=== PATIENT | female | born 1945 | race Caucasian/White ===

== ENCOUNTER 2020-09-11 09:40 | Outpatient (CLI) | payer MEDICARE, SELFPAY ==
--- NOTE | ~2020-09-11 | MM_ITS ---
EXAMINATION: MM screening [facility] HISTORY: Screening TECHNIQUE: Craniocaudal and mediolateral oblique 3-D tomosynthesis images were obtained and synthetic 2-D images were generated. CAD analysis was submitted and interpreted. COMPARISON: Comparison to multiple prior studies sequentially, with oldest reviewed study dated 11/16. BREAST PARENCHYMAL COMPOSITION: There are scattered areas of fibroglandular density. FINDINGS: There is no evidence of suspicious mass, calcification, or architectural distortion to sugg est malignancy in either breast. There has been no suspicious interval change. IMPRESSION: 1. No mammographic evidence of malignancy. 2. Recommend routine screening mammography in one year. BI-RADS Category 1: Negative Reviewed, dictated and finalized at location A.
== END 2020-09-11 09:41 | disposition home or self-care (01) ==
LOC: ANHIMG 09:44
PROVIDERS: PCP Family Medicine; Referring Provider Obstetrics & Gynecology; Visit Provider Family Medicine
DX: Z12.31 Encounter for screening mammogram for malignant neoplasm of breast (principal)
CPT/HCPCS: 77063; 77067

== ENCOUNTER 2022-04-23 08:08 | Outpatient (CLI) | payer MEDICARE, SELFPAY ==
[2022-04-23 20:37] LABS: Kit Draw Collected
== END 2022-04-23 08:09 | disposition home or self-care (01) ==
LOC: ANHGOSHLAB 08:11
PROVIDERS: PCP Family Medicine; Visit Provider Family Medicine
DX: E11.9 Type 2 diabetes mellitus without complications (principal)
CPT/HCPCS: 36415

== ENCOUNTER 2022-08-13 08:10 | Outpatient (CLI) | payer MEDICARE, SELFPAY ==
[2022-08-13 19:01] LABS: Alanine Aminotransferase 24 U/L (6-35); Albumin Level 4.6 g/dL (3.5-5.1); Alkaline Phosphatase 99 U/L (38-126); Anion Gap 10 mmol/L (8-16); Aspartate Amino Transferase 26 U/L (14-36); Bilirubin,Total 0.5 mg/dL (0.2-1.3); Blood Urea Nitrogen 27 mg/dL (7-17); Calcium 9.6 mg/dL (8.4-10.2); Carbon Dioxide 22 mmol/L (22-30); Chloride 104 mmol/L (98-107); Cholesterol 143 mg/dL (0-200); Estimated Glomerular Filt Rate 54; Glucose 137 mg/dL (65-110); HDL Direct 56 mg/dL; Potassium 4.8 mmol/L (3.4-5.0); Sodium 136 mmol/L (137-145); Triglycerides 105 mg/dL (<150)
[2022-08-13 19:15] LABS: Creatinine Urine 57.5 mg/dL
[2022-08-13 19:18] LABS: MALB Creatinine Ratio 104.2 mg/g (0-30); Microalbumin Urine Random 59.9 mg/L (0-16.7)
[2022-08-13 20:51] LABS: Hemoglobin A1C 8.4 % (<5.7)
[2022-08-13 21:25] LABS: LDL Cholesterol Direct 61 mg/dL
== END 2022-08-13 08:11 | disposition home or self-care (01) ==
LOC: ANHGOSHLAB 08:11
PROVIDERS: PCP Family Medicine; Visit Provider Family Medicine
DX: E11.9 Type 2 diabetes mellitus without complications (principal)
CPT/HCPCS: 36415; 80053; 80061; 82043; 83036

== ENCOUNTER 2022-08-22 10:46 | Outpatient (CLI) | payer MEDICARE, SELFPAY ==
--- NOTE | ~2022-08-22 | MM_ITS ---
EXAMINATION: MM screening [facility] HISTORY: Screening mammogram TECHNIQUE: Craniocaudal and mediolateral oblique 3-D tomosynthesis images were obtained and synthetic 2-D images were generated. CAD analysis was submitted and interpreted. COMPARISON: 09/11/2020, 01/24/2018 BREAST PARENCHYMAL COMPOSITION:The breasts are heterogeneously dense, which may obscure small masses. FINDINGS: Since of bilateral benign calcifications are present. No suspicious mass, calcification, or architectural distortion are identified in either breast to suggest malignancy. There has been no solorio spicious interval change. IMPRESSION: No mammographic evidence of malignancy. Recommend routine screening mammography in one year. BI-RADS Category 2: Benign finding(s). Reviewed, dictated and finalized at location .
== END 2022-08-22 10:47 | disposition home or self-care (01) ==
PROVIDERS: PCP Family Medicine; Visit Provider Family Medicine
DX: Z12.31 Encounter for screening mammogram for malignant neoplasm of breast (principal); M81.0 Age-related osteoporosis without current pathological fracture
CPT/HCPCS: 77063; 77067

== ENCOUNTER 2022-08-24 11:27 | Outpatient (CLI) | payer MEDICARE, SELFPAY ==
--- NOTE | ~2022-08-24 | DEXA_ITS ---
Bone Density Report Name: MARINO WILKINS Age: 77 Sex: Female Ethnicity: White Date of : 1945 Indication: postmenopausal; screening for osteoporosis; height loss; Referring Provider: SHAHEEN WELLS Study: Bone densitometry was performed. Exam Date: August 24, 2022 Accession number: [id number] Bone Density: Region BMD T-score Z-score Classification AP Spine(L1-L4) 0.971 -0.7 1.8 Normal Femoral Neck (Left) 0.627 -2.0 0.2 Osteopenia Total Hip (Left) 0.877 -0.5 1.3 Normal Femoral Neck (Right) 0.682 -1.5 0.6 Osteopenia Total Hip (Right) 0.830 -0.9 1.0 Normal Total Hip Mean 0.853 -0.7 1.2 Normal World Health Organization criteria for BMD impression classify patients as: Normal (T-score at or above -1.0), Osteopenia (T-score between -1.0 and -2.5), or Osteoporosis (T-score at or below -2.5). 10-year Fracture Risk(1): Major Osteoporotic Fracture 14% Hip Fracture 3.5% Reported Risk Factors: [place] (), Neck BMD=0.627, BMI=24.0 (1) FRAX(R) Version 3.08. Fracture probability calculated for an untreated patient. Fracture probability may be lower if the patient has received treatment. Previous Exams: Region Exam Age BMD T-score BMD Change BMD Change Date g/cm2 vs Baseline vs Previous AP Spine (L1-L4) 08/24/2022 77 0.971 -0.7 0.007 (0.7%) 0.007 (0.7%) 01/24/2018 73 0.964 -0.8 Total Hip(Left) 08/24/2022 77 0.877 -0.5 -0.057 (-6.1%) -0.057 (-6.1%) 01/24/2018 73 0.934 -0.1 Total Hip(Right) 08/24/2022 77 0.830 -0.9 -0.069 (-7.6%) -0.069 (-7.6%) 01/24/2018 73 0.899 -0.4 *Denotes significance at 95% confidence level, LSC for AP Spine = 0.022 g/cm2, LSC for Total Hip = 0.027 g/cm2 Clinical Information Provided by Patient: Has used the following medications: Vitamin D, Calcium Patient maximum height was 65 Menopause Age: 51 Onset of menses at age 15 Number of children 4 Impression: The patient has low bone mass, based on the Left Femoral Neck T-score. The patient has an estimated ten-year risk of hip fracture of 3.5% and an estimated ten-year risk of major fracture of 14%, based on the WHO FRAX algorithm. The BMD for the Total Hip(Left) decreased, changing by -6.1% since the last DXA exam. The BMD for the Total Hip(Right) decreased, changing by -7.6% since the last DXA exam. Discussion: BONE DENSITY IS LOW AT ONE OR MORE SKELETAL SITES. THE PATIENT'S BMD AND CLINICAL RISK FACTORS CONT
== END 2022-08-24 11:28 | disposition home or self-care (01) ==
LOC: ANHIMG 11:30
PROVIDERS: PCP Family Medicine; Visit Provider Family Medicine
DX: M80.079 Age-related osteoporosis with current pathological fracture, unspecified ankle and foot (principal); M85.852 Other specified disorders of bone density and structure, left thigh; M85.851 Other specified disorders of bone density and structure, right thigh
CPT/HCPCS: 77080

== ENCOUNTER 2022-12-09 08:18 | Outpatient (CLI) | payer MEDICARE, SELFPAY ==
[2022-12-09 19:11] LABS: Basophils Absolute Auto 0.1 K/mm3 (0.0-0.1); Basophils Percent Auto 1.3 % (0.2-1.2); Eosinophils Absolute Auto 0.3 K/mm3 (0-0.3); Eosinophils Percent Auto 5.9 % (0-4.4); Hematocrit 34.3 % (37.0-47.0); Hemoglobin 10.5 g/dL (12.0-15.0); Immature Granulocyte Absolute 0.01 K/mm3 (0.00-0.031); Immature Granulocyte Percent A 0.2 % (0-0.5); Lymphocytes Absolute Auto 1.63 K/mm3 (0.9-3.2); Lymphocytes Percent Auto 30.9 % (18.3-44.2); Mean Corpuscular HGB Conc 30.6 g/dl (32-36); Mean Corpuscular Hemoglobin 25.1 pg (26-34); Mean Corpuscular Volume 82.1 fl (80-100); Mean Platelet Volume 10.2 fl (7.4-10.4); Monocytes Absolute Auto 0.5 K/mm3 (0.1-0.6); Monocytes Percent Auto 9.5 % (2.6-8.5); Neutrophils Absolute Auto 2.8 K/mm3 (1.3-6.7); Neutrophils Percent Auto 52.2 % (45.5-73.1); Platelet Count Result 336 k/mm3 (150-375); Red Blood Count 4.18 M/mm3 (4.2-5.4); Red Cell Distribution Width 15.4 % (11.5-14.5); White Blood Count 5.3 K/mm3 (4.5-10.0)
[2022-12-09 19:14] LABS: Alanine Aminotransferase 26 U/L (6-35); Albumin Level 4.6 g/dL (3.5-5.1); Alkaline Phosphatase 89 U/L (38-126); Anion Gap 10 mmol/L (8-16); Aspartate Amino Transferase 35 U/L (14-36); Bilirubin,Total 0.4 mg/dL (0.2-1.3); Blood Urea Nitrogen 21 mg/dL (7-17); Calcium 9.6 mg/dL (8.4-10.2); Carbon Dioxide 24 mmol/L (22-30); Chloride 101 mmol/L (98-107); Cholesterol 152 mg/dL (0-200); Estimated Glomerular Filt Rate 48; Glucose 118 mg/dL (65-110); HDL Direct 53 mg/dL; Potassium 4.8 mmol/L (3.4-5.0); Sodium 135 mmol/L (137-145); Triglycerides 117 mg/dL (<150)
[2022-12-09 19:25] LABS: LDL Cholesterol Direct 65 mg/dL
[2022-12-09 19:39] LABS: Hemoglobin A1C 8.1 % (<5.7)
[2022-12-09 19:42] LABS: Thyroid Stimulating Hormone 0.766 uIU/mL (0.465-4.680)
== END 2022-12-09 08:19 | disposition home or self-care (01) ==
PROVIDERS: PCP Family Medicine; Visit Provider Physician Assistant
DX: G45.9 Transient cerebral ischemic attack, unspecified (principal); I10 Essential (primary) hypertension; E11.8 Type 2 diabetes mellitus with unspecified complications
CPT/HCPCS: 36415; 80053; 80061; 83036; 84443; 85025

== ENCOUNTER 2022-12-17 14:41 | Outpatient (CLI) | payer MEDICARE, SELFPAY ==
[2022-12-17 17:20] LABS: Basophils Absolute Auto 0.1 K/mm3 (0.0-0.1); Basophils Percent Auto 1.1 % (0.2-1.2); Eosinophils Absolute Auto 0.3 K/mm3 (0-0.3); Eosinophils Percent Auto 3.5 % (0-4.4); Hematocrit 33.2 % (37.0-47.0); Hemoglobin 10.2 g/dL (12.0-15.0); Immature Granulocyte Absolute 0.03 K/mm3 (0.00-0.031); Immature Granulocyte Percent A 0.4 % (0-0.5); Lymphocytes Absolute Auto 1.74 K/mm3 (0.9-3.2); Lymphocytes Percent Auto 24.3 % (18.3-44.2); Mean Corpuscular HGB Conc 30.7 g/dl (32-36); Mean Corpuscular Hemoglobin 25.1 pg (26-34); Mean Corpuscular Volume 81.6 fl (80-100); Mean Platelet Volume 10.6 fl (7.4-10.4); Monocytes Absolute Auto 0.4 K/mm3 (0.1-0.6); Monocytes Percent Auto 6.1 % (2.6-8.5); Neutrophils Absolute Auto 4.6 K/mm3 (1.3-6.7); Neutrophils Percent Auto 64.6 % (45.5-73.1); Platelet Count Result 337 k/mm3 (150-375); Red Blood Count 4.07 M/mm3 (4.2-5.4); Red Cell Distribution Width 15.6 % (11.5-14.5); Reticulocyte Hemoglobin Conten 27.2 pg (28.2-35.7); Reticulocyte Percent 1.18 % (0.7-4.3); Reticulocytes Absolute 0.05 M/mm3 (0.02-0.1); White Blood Count 7.2 K/mm3 (4.5-10.0)
[2022-12-17 18:27] LABS: Iron 39 ug/dL (37-170)
[2022-12-17 21:26] LABS: Ferritin 5.59 ng/mL (11.1-264)
== END 2022-12-17 14:42 | disposition home or self-care (01) ==
LOC: ANHGOSHLAB 14:43
PROVIDERS: PCP Family Medicine; Visit Provider Family Medicine
DX: D64.9 Anemia, unspecified (principal)
CPT/HCPCS: 36415; 82728; 83540; 85025; 85046

== ENCOUNTER 2023-05-05 08:19 | Outpatient (CLI) | payer MEDICARE, SELFPAY ==
[2023-05-05 19:08] LABS: Basophils Absolute Auto 0.1 K/mm3 (0.0-0.1); Basophils Percent Auto 1.3 % (0.2-1.2); Eosinophils Absolute Auto 0.3 K/mm3 (0-0.3); Eosinophils Percent Auto 4.4 % (0-4.4); Hematocrit 41.1 % (37.0-47.0); Hemoglobin 13.1 g/dL (12.0-15.0); Immature Granulocyte Absolute 0.01 K/mm3 (0.00-0.031); Immature Granulocyte Percent A 0.2 % (0-0.5); Immature Reticulocyte Fraction 13.4 % (3.0-15.9); Lymphocytes Absolute Auto 1.59 K/mm3 (0.9-3.2); Lymphocytes Percent Auto 24.9 % (18.3-44.2); Mean Corpuscular HGB Conc 31.9 g/dl (32-36); Mean Corpuscular Hemoglobin 28.7 pg (26-34); Mean Corpuscular Volume 90.1 fl (80-100); Mean Platelet Volume 10.8 fl (7.4-10.4); Monocytes Absolute Auto 0.4 K/mm3 (0.1-0.6); Monocytes Percent Auto 5.9 % (2.6-8.5); Neutrophils Absolute Auto 4.1 K/mm3 (1.3-6.7); Neutrophils Percent Auto 63.3 % (45.5-73.1); Platelet Count Result 253 k/mm3 (150-375); Red Blood Count 4.56 M/mm3 (4.2-5.4); Red Cell Distribution Width 14.1 % (11.5-14.5); Reticulocyte Hemoglobin Conten 33.2 pg (28.2-35.7); Reticulocyte Percent 1.69 % (0.7-4.3); Reticulocytes Absolute 0.08 M/mm3 (0.02-0.1); White Blood Count 6.4 K/mm3 (4.5-10.0)
[2023-05-05 19:13] LABS: Alanine Aminotransferase 27 U/L (6-35); Albumin Level 4.4 g/dL (3.5-5.1); Alkaline Phosphatase 104 U/L (38-126); Anion Gap 11 mmol/L (8-16); Aspartate Amino Transferase 31 U/L (14-36); Bilirubin,Total 0.6 mg/dL (0.2-1.3); Blood Urea Nitrogen 18 mg/dL (7-17); Carbon Dioxide 23 mmol/L (22-30); Chloride 103 mmol/L (98-107); Cholesterol 178 mg/dL (0-200); Estimated Glomerular Filt Rate > 60; Glucose 173 mg/dL (65-110); HDL Direct 62 mg/dL; Potassium 4.8 mmol/L (3.4-5.0); Sodium 137 mmol/L (137-145); Triglycerides 152 mg/dL (<150)
[2023-05-05 19:23] LABS: LDL Cholesterol Direct 81 mg/dL
[2023-05-05 19:35] LABS: Creatinine Urine 96.9 mg/dL
[2023-05-05 19:54] LABS: MALB Creatinine Ratio 312.3 mg/g (0-30); Microalbumin Urine Random 302.6 mg/L (0-16.7)
[2023-05-05 20:59] LABS: Hemoglobin A1C 9.2 % (<5.7)
== END 2023-05-05 08:20 | disposition home or self-care (01) ==
LOC: ANHGOSHLAB 08:21
PROVIDERS: PCP Family Medicine; Visit Provider Family Medicine
DX: D64.9 Anemia, unspecified (principal); E11.9 Type 2 diabetes mellitus without complications
CPT/HCPCS: 36415; 80053; 80061; 82043; 82728; 83036; 85025; 85046

== ENCOUNTER 2023-09-07 07:59 | Outpatient (CLI) | payer MEDICARE, SELFPAY ==
[2023-09-07 19:45] LABS: Alanine Aminotransferase 26 U/L (6-35); Albumin Level 4.5 g/dL (3.5-5.1); Alkaline Phosphatase 85 U/L (38-126); Anion Gap 8 mmol/L (4-12); Aspartate Amino Transferase 31 U/L (14-36); Bilirubin,Total 0.6 mg/dL (0.2-1.3); Blood Urea Nitrogen 27 mg/dL (7-17); Calcium 9.7 mg/dL (8.4-10.2); Carbon Dioxide 22 mmol/L (22-30); Chloride 106 mmol/L (98-107); Estimated Glomerular Filt Rate > 60; Glucose 123 mg/dL (65-110); Potassium 4.8 mmol/L (3.4-5.0); Sodium 136 mmol/L (137-145)
[2023-09-07 19:58] LABS: Hemoglobin A1C 7.4 % (<5.7)
== END 2023-09-07 08:00 | disposition home or self-care (01) ==
LOC: ANHGOSHLAB 08:00
PROVIDERS: PCP Family Medicine; Visit Provider Family Medicine
DX: E11.9 Type 2 diabetes mellitus without complications (principal)
CPT/HCPCS: 36415; 80053; 83036

== ENCOUNTER 2024-01-07 07:58 | Outpatient (CLI) | payer MEDICARE, SELFPAY ==
[2024-01-07 14:39] LABS: Alanine Aminotransferase 25 U/L (6-35); Albumin Level 4.6 g/dL (3.5-5.1); Alkaline Phosphatase 89 U/L (38-126); Anion Gap 11 mmol/L (4-12); Aspartate Amino Transferase 43 U/L (14-36); Bilirubin,Total 0.6 mg/dL (0.2-1.3); Blood Urea Nitrogen 26 mg/dL (7-17); Calcium 9.7 mg/dL (8.4-10.2); Carbon Dioxide 23 mmol/L (22-30); Chloride 103 mmol/L (98-107); Estimated Glomerular Filt Rate 54; Glucose 86 mg/dL (65-110); Potassium 4.6 mmol/L (3.4-5.0); Sodium 137 mmol/L (137-145)
[2024-01-07 16:23] LABS: Hemoglobin A1C 7.5 % (<5.7)
== END 2024-01-07 07:59 | disposition home or self-care (01) ==
LOC: ANHGOSHLAB 08:00
PROVIDERS: PCP Family Medicine; Visit Provider Family Medicine
DX: E11.9 Type 2 diabetes mellitus without complications (principal)
CPT/HCPCS: 36415; 80053; 83036

== ENCOUNTER 2024-05-23 08:29 | Outpatient (CLI) | payer MEDICARE, SELFPAY ==
[2024-05-23 13:48] LABS: Alanine Aminotransferase 23 U/L (6-35); Albumin Level 4.4 g/dL (3.5-5.1); Alkaline Phosphatase 93 U/L (38-126); Anion Gap 11 mmol/L (4-12); Aspartate Amino Transferase 41 U/L (14-36); Bilirubin,Total 0.7 mg/dL (0.2-1.3); Blood Urea Nitrogen 23 mg/dL (7-17); Calcium 9.3 mg/dL (8.4-10.2); Carbon Dioxide 25 mmol/L (22-30); Chloride 102 mmol/L (98-107); Estimated Glomerular Filt Rate > 60; Glucose 131 mg/dL (65-110); Potassium 4.6 mmol/L (3.4-5.0); Sodium 138 mmol/L (137-145)
[2024-05-23 21:34] LABS: Hemoglobin A1C 8.3 % (<5.7)
== END 2024-05-23 08:30 | disposition home or self-care (01) ==
LOC: ANHGOSHLAB 08:30
PROVIDERS: PCP Family Medicine; Visit Provider Family Medicine
DX: E11.9 Type 2 diabetes mellitus without complications (principal)
CPT/HCPCS: 36415; 80053; 83036

== ENCOUNTER 2024-09-26 08:19 | Outpatient (CLI) | payer MEDICARE, SELFPAY ==
--- OUTSIDE RECORDS SUMMARY | 2024-09-26 08:28 | XMS_ITS | Clinical Summary ---
Author Organization [email or web address] Address [address] [place] [address] Care Team Providers Care Disabilities Caregiver Name Role Phone Norris Ozuna MD Primary Care Provider [phone] Source Comments [email or web address],non-owned Affiliates and Associated Physician Practices is amultiple site organization consisting of ambulatory clinics and hospital sitesin [place], [place], [place] and [place]. This disclosure is being madepursuant to the Care Everywhere program and may not contain all information available regarding this patient. Last updated 18.[email or web address] Allergies No known active allergies Medications * Be aware that medications may not be up to date on this document. Alwaysverify current medications with the patient. atorvastatin (LIPITOR) 40 MG tablet Take 1 (one) tablet by mouth once daily 1 Active lisinopril (PRINIVIL; ZESTRIL) 20 MG tablet Take 1 (one) tablet by mouth 2 times daily 1 Active SITagliptin-me tFORMIN (JANUMET) 50-1000 MG tablet Take 1 (one) tablet by mouth 2 times daily Active glimepiride (AMARYL) 2 MG tablet Take 1 (one) tablet by mouth 2 times daily 1 Active OZEMPIC, 1 MG/DOSE, 4 MG/3ML SOPN Inject 1 (one) mg subcutaneously every 7 days On Wednesdays 1 Active omeprazole (PRILOSEC) 20 MG capsule Take 1 (one) capsule by mouth daily before breakfast Active amLODIPine (NORVASC) 10 MG tablet Take 1 (one) tablet by mouth once daily 30 tablet 3 2 Active aspirin (Aspirin) 81 MG chew tablet Take 1 (one) tablet by mouth once daily 30 tablet 3 4 Active metoprolol succinate XL 24hr (Toprol XL) 25 MG tablet Take 1 (one) tablet by mouth once daily Active ferrous sulfate 325 (65 FE) MG tablet Take 1 (one) tablet by mouth 2 times daily with morning and evening meal Active Basaglar KwikPen (Basaglar) pen Inject 10 (ten) Units subcutaneously at bedtime Active Active Problems Problem Noted Date Diagnosed Date Weakness 06/15/2023 Thalamic infarct, acute 06/15/2023 ICH (intracerebral hemorrhage) 06/15/2023 Confusion 06/15/2023 TIA (transient ischemic attack) 05/19/2021 Facial droop 05/19/2021 HTN (hypertension) 05/19/2021 Diabetes mellitus type II, c ontrolled, with no complications 05/19/2021 Social History Tobacco Use Types Packs/Day Years Used Date Smoking Tobacco: Never Smokeless Tobacco: Never Tobacco Cessation:Counseling Given: Not Answered Alcohol Use Standard Drinks/Week Comments Not Currently 0 (1 standard drink = 0.6 oz pur e alcohol) AUDIT-C Answer Date Recorded Q1: How often do you have a drink containing alcohol? Never 06/15/2023 Q2: How many drinks containi ng alcohol do you have on a typical day when you are drinking? Patient does not drink 4 Q3: How often do you have si x or more drinks on one occasion? Never 06/15/2023 Overall Financial Resource Strain (CARDIA) Answe r Date Recorded How hard is it for you to pa y for the very basics like food, housing, medical care, and heating? Not hard at all 06/15/2023 PHQ-2 Answer Date Recorded PHQ2 TOTAL SCORE 0 05/20/2021 [facility] - Occupational Stress Questionnaire Answer Date Recorded Do you feel stress - tense, restless, nervous, or anxious, or unable to sleep at night because your mind is troubled all the time - these days? Only a little 06/15/2023 Hunger Vital Sign Answer Date Recorded Within the past 12 months, y ou worried that your food would run out before you got the money to buy more. Never true 06/15/19 24 Within the past 12 months, t he food you bought just didn't last and you didn't have money to get more. Never true 06/15/2023 PRAPARE - Transportation Answer Date Re corded In the past 12 months, has l ack of transportation kept you from medical appointments or from getting medications? No 10/2023 In the past 12 months, has l ack of transportation kept you from meetings, work, or from getting things needed for daily living? No 06/15/2023 Housing Stability Vital Sign Answer Cruz e Recorded In the last 12 months, was t here a time when you were not able to pay the mortgage or rent on time? No 06/15/2023 In the last 12 months, how many places have you lived? 1 06/15/2023 In the last 12 months, was t here a time when you did not have a steady place to sleep or slept in a longterm (including now)? No 06/15/2023 Comments No Sex and Gender Information Value Date Recorded Sex Assigned at Not on file Legal Sex Female 11:07 AM CNC LATHE PROGRAMMER Gender Identity Not on file Sexual Orientation Not on file Last Filed Vital Signs Vital Sign Reading Time Taken Comments Blood Pressure 158/78 07/21/2023 9:26 AM CDT Pulse 107 07/21/2023 9:26 AM CDT Temperature 37.1 C (98.8 F) 06/16/2023 8:00 AM CNC LATHE PROGRAMMER Respiratory Rate 10 07/21/2023 9:26 AM CDT Oxygen Saturation 96% 06/16/2023 1:00 PM CNC LATHE PROGRAMMER Inhaled Oxygen Concentration - - Weight 63 kg (139 lb) 07/21/2023 9:26 AM CDT Height 165.1 cm (5' 5 ) 07/21/2023 9:26 AM CDT Body Mass Index 23.13 07/21/2023 9:26 AM CDT Plan of Treatment Health Maintenance Due Date Last Done Comments BONE DENSITY TESTING 1945 MEDICARE AWV 12 MONTHS 1945 HEPATITIS C SCREENING 12/31/1963 DTAP/TDAP/TD VACCINES (1 - Tdap) 1965 PNEUMOCOCCAL VACCINE 50+ (1 of 2 - PCV) 1965 ZOSTER VACCINE (1 of 2) 01/05/1996 Respiratory Syncytial Virus (RSV) Vaccine Pt: or over 60 yrs (1 - 1-dose 75+ series) 2021 DIABETES RETINOPATHY SCREENING 05/19/2021 DIABETES-FOOT EXAM WITH MONOFILAMENT 05/19/2021 DIABETES-HGB A1C 09/14/2023 06/16/2023, 05/20/2021 COVID-19 VACCINE ( season) 2024 02/05/2022, 02/19/2021, 07/27/2020, Additional history exists DEPRESSION SCREENING 05/10/2024 DIABETES - URINE PROTEIN SCREENING 05/10/2024 DIABETES-SERUM CREATININE 06/16/20242023, 06/15/2023, 06/15/2023, Additional history exists INFLUENZA VACCINE (Season Ended) 2025 02/05/2023, 01/05/2022, 01/29/2021, Additional history exists HEPATITIS B VACCINE Aged Out No longe r eligible based on patient's age to complete this topic HIB VACCINE Aged Out No longer eligi ble based on patient's age to complete this topic HPV VACCINE Aged Out No longer eligi ble based on patient's age to complete this topic MENINGOCOCCAL (Group B) VACCINE SHARED DECISION-MAKING Aged Out No longer eligible based on patient's age to complete this topic MENINGOCOCCAL GROUPS A/C/Y/W VACCINE Aged Out No longer eligible based on patient's age to complete this topic Procedures Procedure Name Priority Date/Time Associated Diagnosis Comments BASIC METABOLIC PANEL (CALCIUM TOTAL) Routine 06/16/2023 3:47 AM CNC LATHE PROGRAMMER HEMOGLOBIN A1C Routine 06/16/2023 3:47 AM CNC LATHE PROGRAMMER from Last 3 Months or Most Recently Relevant to Health Maintenance Results * (ABNORMAL) HEMOGLOBIN A1C (06/16/2023 3:47 AM CNC LATHE PROGRAMMER) Hemoglobin A1c 8.9(H) <=5.6 % 06/16/2023 9:39 AM CNC LATHE PROGRAMMER [facility] Estimated Average Glucose 209 mg/dL 06/16/2023 9:39 AM CNC LATHE PROGRAMMER [facility] Comment: HbA1c Interpretation: Normal : < 5.7% Pre-diabetes: 5.7-6.4% Diabetes: Equal to or greater than 6.5% Test results diagnostic of diabetes should be repeated for confirmation. Treatment target values recommended by ADA and other clinical organizations should be used to evaluate metabolic control in patients. Reference: [place] Diabetes Association, Standards of Care in Diabetes -2020 In patients 70 years and older consider HbA1c target range of 7.0-7.5% (Reference: Yevgeniy Tenorio et al. JAMDA. 2012) The Sebia assay for the measurement of HbA1c is a National Glycohemoglobin Standardization Program (NGSP) certified method. Blood BLOOD SPECIMEN / Unknown Venipuncture / Unknown 06/16/2023 3:47 AM CNC LATHE PROGRAMMER 06/16/2023 3:54 AM CNC LATHE PROGRAMMER us Mark Anaya MD LAB - CHEMISTRY ORDERABLES Fin al Result [facility] [address] [place] [address], [facility] [phone] * (ABNORMAL) BASIC METABOLIC PANEL (CALCIUM TOTAL) (06/16/2023 3:47 AM CNC LATHE PROGRAMMER) BUN 19 7 - 26 mg/dL 06/16/2023 4:43 AM [facility] Creatinine 0.84 0.56 - 0.96 mg/dL 06/16/2023 4:43 AM [facility] Sodium 136 136 - 145 mmol/L 06/16/2023 4:43 AM [facility] Potassium 4.2 3.5 - 4.5 mmol/L 06/16/2023 4:43 AM [facility] Chloride 106 98 - 107 mmol/L 06/16/2023 4:43 AM [facility] CO2 22 22 - 29 mmol/L 06/16/2023 4:43 AM [facility] Glucose 139(H) 70 - 115 mg/dL 06/16/2023 4:43 AM [facility] Calcium 9.2 8.4 - 10.2 mg/dL 06/16/2023 4:43 AM [facility] Anion Gap 8 6 - 16 06/16/2023 4:43 AM [facility] BUN/Creatinine Ratio 23 7 - 23 06/16/2023 4:43 AM [facility] Osmolality Calculated 287 275 - 295 mOsm/kg 06/16/2023 4:43 AM [facility] eGFR by CKD-EPI 72(L) >=90 mL/min/1.7 3 m2 06/16/2023 4:43 AM [facility] Blood BLOOD SPECIMEN / Unknown Venipuncture / Unknown 06/16/2023 3:47 AM CNC LATHE PROGRAMMER 06/16/2023 3:56 AM [facility] us Tino Stokes STACKER OPERATOR-GORE STITCHER LAB - CHEMISTRY ORDERABLES Final Result [facility] [address] [place] [address], [facility] [phone] from Last 3 Months or Most Recently Relevant to Health Maintenance Insurance MEDICARE [facility] MEDICARE [place] Advance Directives * Full Code (Latest Code Status on File) Date Activated Date Inactivated Comments 06/15/2023 12:09 PM 06/16/2023 3:40 PM * Full Code Date Activated Date Inactivated Comments 05/19/2021 4:44 PM 05/20/2021 1:39 PM Care Teams Disabilities Caregiver Relationship Specialty Start Date End Date Norris Ozuna MD [address] [place] [id number] PCP - General 05/23/21
[2024-09-26 13:30] LABS: Alanine Aminotransferase 24 U/L (6-35); Albumin Level 4.7 g/dL (3.5-5.1); Alkaline Phosphatase 91 U/L (38-126); Anion Gap 11 mmol/L (4-12); Aspartate Amino Transferase 35 U/L (14-36); Bilirubin,Total 0.7 mg/dL (0.2-1.3); Blood Urea Nitrogen 29 mg/dL (7-17); Calcium 9.8 mg/dL (8.4-10.2); Carbon Dioxide 23 mmol/L (22-30); Chloride 104 mmol/L (98-107); Cholesterol 153 mg/dL (0-200); Estimated Glomerular Filt Rate 56; Glucose 111 mg/dL (65-110); HDL Direct 61 mg/dL; Potassium 4.5 mmol/L (3.4-5.0); Sodium 138 mmol/L (137-145); Triglycerides 115 mg/dL (<150)
[2024-09-26 13:43] LABS: LDL Cholesterol Direct 59 mg/dL
[2024-09-26 13:52] LABS: Creatinine Urine 48.8 mg/dL
[2024-09-26 13:56] LABS: MALB Creatinine Ratio 63.1 mg/g (0-30); Microalbumin Urine Random 30.8 mg/L (0-16.7)
[2024-09-26 14:47] LABS: Hemoglobin A1C 7.5 % (<5.7)
== END 2024-09-26 08:20 | disposition home or self-care (01) ==
LOC: ANHGOSHLAB 08:20
PROVIDERS: PCP Family Medicine; Visit Provider Family Medicine
DX: E11.9 Type 2 diabetes mellitus without complications (principal)
CPT/HCPCS: 36415; 80053; 80061; 82043; 83036

== ENCOUNTER 2025-01-24 08:04 | Outpatient (CLI) | payer MEDICARE, SELFPAY ==
--- OUTSIDE RECORDS SUMMARY | 2025-01-24 08:22 | XMS_ITS | Clinical Summary ---
Author Organization [facility] Address [address] [place] [address] Care Team Providers Care Luncheonette Operator Name Role Phone Norris Ozuna MD Primary Care Provider [phone]- [phone] Source Comments [facility],non-owned Affiliates and Associated Physician Practices is amultiple site organization consisting of ambulatory clinics and hospital sitesin [place], [place], [place] and [place]. This disclosure is being madepursuant to the Care Everywhere program and may not contain all information available regarding this patient. Last updated 18.[facility] Allergies No known active allergies Medications * [...] Date Recorded PHQ2 TOTAL SCORE 0 05/20/2021 [facility] - Occupational Stress [...] place to sleep or slept in a fdc (including now)? No 06/15/2023 Comments No Sex and Gender Information Value Date Recorded Sex Assigned at Not on file Legal Sex Female 11:07 AM GRINDER OPERATOR AUTOMATIC Gender Identity Not on file Sexual Orientation Not on file Last Filed Vital Signs Vital Sign Reading Time Taken Comments Blood Pressure 158/78 07/21/2023 9:26 AM CDT Pulse 107 07/21/2023 9:26 AM CDT Temperature 37.1 C (98.8 F) 06/16/2023 8:00 AM GRINDER OPERATOR AUTOMATIC Respiratory Rate 10 07/21/2023 9:26 AM CDT Oxygen Saturation 96% 06/16/2023 1:00 PM GRINDER OPERATOR AUTOMATIC Inhaled Oxygen Concentration - - Weight 63 kg (139 lb) 07/21/2023 9:26 AM CDT Height 165.1 cm (5' 5) 07/21/2023 9:26 AM CDT Body Mass Index [...] MONOFILAMENT 05/19/2021 DIABETES-HGB A1C 09/14/2023 06/16/2023, 05/20/2021 DEPRESSION SCREENING 05/10/2024 DIABETES - URINE PROTEIN SCREENING 05/10/2024 DIABETES-SERUM CREATININE 06/16/20242023, 06/15/2023, 06/15/2023, Additional history exists COVID-19 VACCINE ( season) 2025 02/05/2022, 02/19/2021, 07/27/2020, Additional history exists INFLUENZA VACCINE (#1) 2025 , 01/05/2022, 01/29/2021, Additional history exists HEPATITIS B [...] PANEL (CALCIUM TOTAL) Routine 06/16/2023 3:47 AM GRINDER OPERATOR AUTOMATIC HEMOGLOBIN A1C Routine 06/16/2023 3:47 AM GRINDER OPERATOR AUTOMATIC from Last 3 Months or Most Recently Relevant to Health Maintenance Results * (ABNORMAL) HEMOGLOBIN A1C (06/16/2023 3:47 AM GRINDER OPERATOR AUTOMATIC) Hemoglobin A1c 8.9(H) <=5.6 % 06/16/2023 9:39 AM GRINDER OPERATOR AUTOMATIC [facility] Estimated Average Glucose 209 mg/dL 06/16/2023 9:39 AM GRINDER OPERATOR AUTOMATIC [facility] Comment: HbA1c Interpretation: Normal : < 5.7% Pre-diabetes: 5.7-6.4% Diabetes: Equal to or greater than 6.5% Test results diagnostic of diabetes should be repeated for confirmation. Treatment target values recommended by ADA and other clinical organizations should be used to evaluate metabolic control in patients. Reference: [place] Diabetes Association, Standards of Care in Diabetes -2020 In patients 70 years and older consider HbA1c target range of 7.0-7.5% (Reference: Yevgeniy Tenorio et al. JAMDA. 2012) The Sebia assay for the measurement of HbA1c is a National Glycohemoglobin Standardization Program (NGSP) certified method. Blood BLOOD SPECIMEN / Unknown Venipuncture / Unknown 06/16/2023 3:47 AM GRINDER OPERATOR AUTOMATIC 06/16/2023 3:54 AM GRINDER OPERATOR AUTOMATIC us Mark Anaya MD LAB - CHEMISTRY ORDERABLES Fin al Result [facility] [address] [place] [address], [facility] [phone] * (ABNORMAL) BASIC METABOLIC PANEL (CALCIUM TOTAL) (06/16/2023 3:47 AM GRINDER OPERATOR AUTOMATIC) BUN 19 7 - 26 mg/dL 06/16/2023 4:43 AM [facility] Creatinine 0.84 0.56 - 0.96 mg/dL 06/16/2023 4:43 AM [facility] Sodium 136 136 - 145 mmol/L 06/16/2023 4:43 AM [facility] Potassium 4.2 3.5 - 4.5 mmol/L 06/16/2023 4:43 AM [facility] Chloride 106 98 - 107 mmol/L 06/16/2023 4:43 AM [facility] CO2 22 22 - 29 mmol/L 06/16/2023 4:43 AM [facility] Glucose 139(H) 70 - 115 mg/dL 06/16/2023 4:43 AM [facility] Calcium 9.2 8.4 - 10.2 mg/dL 06/16/2023 4:43 AM [facility] Anion Gap 8 6 - 16 06/16/2023 4:43 AM [facility] BUN/Creatinine Ratio 23 7 - 23 06/16/2023 4:43 AM [facility] Osmolality Calculated 287 275 - 295 mOsm/kg 06/16/2023 4:43 AM [facility] eGFR by CKD-EPI 72(L) >=90 mL/min/1.7 3 m2 06/16/2023 4:43 AM [facility] Blood BLOOD SPECIMEN / Unknown Venipuncture / Unknown 06/16/2023 3:47 AM GRINDER OPERATOR AUTOMATIC 06/16/2023 3:56 AM [facility] us Tino Stokes PAN WASHER-METAL REED TUNER LAB - CHEMISTRY ORDERABLES Final Result [facility] [address] [place] [address], [facility] [phone] from Last 3 Months or Most Recently Relevant to Health Maintenance Insurance MEDICARE [facility] Address: [facility] [address] [place] [address] MEDICARE [facility] Address: [address] [place] [address] Advance Directives * Full Code (Latest Code Status on File) Date Activated Date Inactivated Comments 06/15/2023 12:09 PM 06/16/2023 3:40 PM * Full Code Date Activated Date Inactivated Comments 05/19/2021 4:44 PM 05/20/2021 1:39 PM Care Teams Luncheonette Operator Relationship Specialty Start Date End Date Norris Ozuna MD [address] [place] [phone] PCP - General 05/23/21
[2025-01-24 16:45] LABS: Hemoglobin A1C 7.6 % (<5.7)
== END 2025-01-24 08:05 | disposition home or self-care (01) ==
PROVIDERS: PCP Family Medicine; Visit Provider Family Medicine
DX: E11.8 Type 2 diabetes mellitus with unspecified complications (principal)
CPT/HCPCS: 36415; 83036

== ENCOUNTER 2025-03-20 07:21 | Outpatient (CLI) | payer MEDICARE, SELFPAY ==
--- NOTE | ~2025-03-20 | MM_ITS ---
EXAMINATION: MM screening simran BI w lilo HISTORY: Screening TECHNIQUE: Craniocaudal and mediolateral oblique 3-D tomosynthesis images were obtained and synthetic 2-D images were generated. CAD analysis was submitted and interpreted. COMPARISON: Comparison to multiple prior studies sequentially, with oldest reviewed study dated 04/16/2015. BREAST PARENCHYMAL COMPOSITION: Dense: The breasts are heterogeneously dense, which may obscure small masses FINDINGS: There is no evidence of suspicious mass, calcification, or architectural distortion to suggest malignancy in either breast. There has been no suspicious interval change. IMPRESSION: 1. No mammographic evidence of malignancy. 2. Recommend routine screening mammography in one year. BI-RADS Category 1: Negative Reviewed, dictated and finalized at location C. [facility]
--- OUTSIDE RECORDS SUMMARY | 2025-03-20 07:26 | XMS_ITS | Clinical Summary ---
Author Organization [facility] [employer] Address [address] [place] [address] Care Team Providers Care Corporate Concierge Name Role Phone Norris Ozuna MD Primary Care Provider [phone] Source Comments [facility] [employer],non-owned Affiliates and Associated Physician Practices is amultiple site organization consisting of ambulatory clinics and hospital sitesin [place], [place], [place] and [place]. This disclosure is being madepursuant to the Care Everywhere program and may not contain all information available regarding this patient. Last updated 18.[facility] [employer] Allergies No known active allergies Medications * [...] Date Recorded PHQ2 TOTAL SCORE 0 05/20/2021 [facility] - Occupational Stress [...] place to sleep or slept in a intermediate (including now)? No 06/15/2023 Comments No Sex and Gender Information Value Date Recorded Sex Assigned at Not on file Legal Sex Female 11:07 AM UROLOGY NURSE Gender Identity Not on file Sexual Orientation Not on file Last Filed Vital Signs Vital Sign Reading Time Taken Comments Blood Pressure 158/78 07/21/2023 9:26 AM CDT Pulse 107 07/21/2023 9:26 AM CDT Temperature 37.1 C (98.8 F) 06/16/2023 8:00 AM UROLOGY NURSE Respiratory Rate 10 07/21/2023 9:26 AM CDT Oxygen Saturation 96% 06/16/2023 1:00 PM UROLOGY NURSE Inhaled Oxygen Concentration - - Weight 63 kg (139 lb) 07/21/2023 9:26 AM CDT Height 165.1 cm (5' 5) 07/21/2023 9:26 AM CDT Body Mass Index 23.13 07/21/2023 9:26 AM CDT Plan of Treatment Health Maintenance Due Date Last Done Comments BONE DENSITY TESTING 1945 MEDICARE AWV 12 MONTHS 1945 DTAP/TDAP/TD VACCINES (1 - Tdap) 1965 PNEUMOCOCCAL [...] PANEL (CALCIUM TOTAL) Routine 06/16/2023 3:47 AM UROLOGY NURSE HEMOGLOBIN A1C Routine 06/16/2023 3:47 AM UROLOGY NURSE from Last 3 Months or Most Recently Relevant to Health Maintenance Results * (ABNORMAL) HEMOGLOBIN A1C (06/16/2023 3:47 AM UROLOGY NURSE) Hemoglobin A1c 8.9(H) <=5.6 % 06/16/2023 9:39 AM [facility] Estimated Average Glucose 209 mg/dL 06/16/2023 9:39 AM [facility] Comment: HbA1c Interpretation: Normal : < 5.7% Pre-diabetes: 5.7-6.4% Diabetes: Equal to or greater than 6.5% Test results diagnostic of diabetes should be repeated for confirmation. Treatment target values recommended by ADA and other clinical organizations should be used to evaluate metabolic control in patients. Reference: [place] [employer], Standards of Care in Diabetes -2020 In patients 70 years and older consider HbA1c target range of 7.0-7.5% (Reference: Yevgeniy Tenorio et al. ANDREDA. 2012) The Sebia assay for the measurement of HbA1c is a National Glycohemoglobin Standardization Program (NGSP) certified method. Blood BLOOD SPECIMEN / Unknown Venipuncture / Unknown 06/16/2023 3:47 AM UROLOGY NURSE 06/16/2023 3:54 AM UROLOGY NURSE us Mark Anaya MD LAB - CHEMISTRY ORDERABLES Fin al Result [facility] [address] [place] [address], [facility] [phone] * (ABNORMAL) BASIC METABOLIC PANEL (CALCIUM TOTAL) (06/16/2023 3:47 AM [facility]) BUN 19 7 - 26 mg/dL 06/16/2023 4:43 AM [facility] Creatinine 0.84 0.56 - 0.96 mg/dL 06/16/2023 4:43 AM [facility] Sodium 136 136 - 145 mmol/L 06/16/2023 4:43 AM [facility] Potassium 4.2 3.5 - 4.5 mmol/L 06/16/2023 4:43 AM [facility] Chloride 106 98 - 107 mmol/L 06/16/2023 4:43 AM [facility] CO2 22 22 - 29 mmol/L 06/16/2023 4:43 AM [facility] Glucose 139(H) 70 - 115 mg/dL 06/16/2023 4:43 AM [facility] Calcium 9.2 8.4 - 10.2 mg/dL 06/16/2023 4:43 AM [facility] Anion Gap 8 6 - 16 06/16/2023 4:43 AM [facility] BUN/Creatinine Ratio 23 7 - 23 06/16/2023 4:43 AM [facility] Osmolality Calculated 287 275 - 295 mOsm/kg 06/16/2023 4:[address] [facility] eGFR by CKD-EPI 72(L) >=90 mL/min/1.7 3 m2 06/16/2023 4:43 AM [facility] Blood BLOOD SPECIMEN / Unknown Venipuncture / Unknown 06/16/2023 3:47 AM UROLOGY NURSE 06/16/2023 3:56 AM UROLOGY NURSE Tino Stokes [employer] LAB - CHEMISTRY ORDERABLES Final Result [facility] [address] [place] [address], [facility] [phone] from Last 3 Months or Most Recently Relevant to Health Maintenance Insurance MEDICARE [facility] MEDICARE ANTHEM Advance Directives * Full Code (Latest Code Status on File) Date Activated Date Inactivated Comments 06/15/2023 12:09 PM 06/16/2023 3:40 PM * Full Code Date Activated Date Inactivated Comments 05/19/2021 4:44 PM 05/20/2021 1:39 PM Care Teams Corporate Concierge Relationship Specialty Start Date End Date Norris Ozuna MD [address] [place] [phone] PCP - General 05/23/21
== END 2025-03-20 07:22 | disposition home or self-care (01) ==
LOC: ANHFOHIMG 07:23
PROVIDERS: PCP Family Medicine; Visit Provider Nurse Practitioner Family
DX: Z12.31 Encounter for screening mammogram for malignant neoplasm of breast (principal)
CPT/HCPCS: 77063; 77067